=== PATIENT | female | born 1995 | race Hispanic/Latino ===

== ENCOUNTER 2019-12-03 11:21 | Emergency (ER) | payer OTHER ==
[~2019-12-03] VITALS: Ht 152.4 cm; Wt 45.4 kg
[2019-12-03] MEDS ORDERED: DOXYCYCLINE HY100 MG PO (13:35)
[2019-12-03] MEDS ORDERED: NORCO 5-325 TA1 EACH PO (13:35)
[2019-12-03] MEDS ORDERED: ONDANSETRON ODT4 MG PO (13:35)
[2019-12-03] MEDS ORDERED: FLAGYL500 MG PO (13:35)
== END 2019-12-03 14:30 | disposition home or self-care (01) ==
LOC: ED 11:21
DX: N73.9 Female pelvic inflammatory disease, unspecified (principal)
CPT/HCPCS: 76830; 76856; 80053; 81001; 83735; 84703; 85025; 87491; 87591; 96361; 96365; 96375; 99284-25; J0696; J1170; J1885; J2405; J2550; J7030

== ENCOUNTER 2019-12-04 08:03 | Emergency (ER) | payer OTHER ==
[~2019-12-04] VITALS: Ht 152.4 cm; Wt 45.4 kg
--- OUTSIDE RECORDS SUMMARY | ~2019-12-04 | XMS | Encounter Summary ---
Demographics + + + | Address | [address] | | | [place] [address] | + + + | Home Phone | | + + + | Preferred Language | Unknown | + + + | Marital Status | Single | + + + | Congregation Affiliation | Unknown | + + + | Race | Unknown | + + + | Ethnic Group | Unknown | + + + Author + + + | Author | [facility] | | | and [place] | + + + | Organization | [facility] | | | and [place] | + + + | Address | Unknown | + + + | Phone | Unavailable | + + + Support + + +---------+ + | Name | Relationship | Address | Phone | + + +---------+ + | Sharri Anne | ECON | Unknown | | + + +---------+ + Care Team Providers + +------+ + | Care Chief Librarian Circulation Department Name | Role | Phone | + +------+ + PCP | Unavailable | + +------+ + Encounter Details +--------+ + + + + | Date | Type | Department | Care Team | Description | +--------+ + + + + | 05/22/ | Emergency | [facility] | Matt Sierra | Generalized | | 2014 | | [facility] | [address] | abdominal pain; | | | | EMERG[facility] | ABENA BLANCHARD | Alcohol | | | | [address] | [place], [place] | intoxication, | | | | [place], [place] | [address] | uncomplicated; | | | | [address] | [phone] | Marijuana use; | | | | [phone] | | Polysubstance abuse; | | | | | | Intractable | | | | | | vomiting with | | | | | | nausea, vomiting of | | | | | | unspecified type | +--------+ + + + + Social History + +-------+ +--------+------+ | Tobacco Use | Types | Packs/Day | Years | Date | | | | | Used | | + +-------+ +--------+------+ | Never Smoker | | | | | + +-------+ +--------+------+ + + + | Sex Assigned at | Date Recorded | | | | + + + | Not on file | | + + + + + + + | Job Start Date | Occupation | Industry | + + + + | Not on file | Not on file | Not on file | + + + + + + + + | Travel History | Travel Start | Travel End | + + + + + + | No recent travel history available. | + + documented as of this encounter Plan of Treatment Not on filedocumented as of this encounter Procedures + +--------+ + + + | Procedure Name | Priori | Date/Time | Associated Diagnosis | Comments | | | ty | | | | + +--------+ + + + | GC/CHLAM APTIMA | Routin | 05/22/2015 | | Results for this | | | e | 12:15 PM | | procedure are in the | | | | PDT | | results section. | + +--------+ + + + | DANITA GENITAL | Timed | 05/22/2015 | | Results for this | | | | 12:15 PM | | procedure are in the | | | | PDT | | results section. | + +--------+ + + + | CHIN ABAD GENITAL | Timed | 05/22/2015 | | Results for this | | | | 12:15 PM | | procedure are in the | | | | PDT | | results section. | + +--------+ + + + | US PELVIS | Routin | 05/22/2015 | | Results for this | | TRANSABDOMINAL | e | 11:14 AM | | procedure are in the | | | | PDT | | results section. | + +--------+ + + + | URINALYSIS, REFLEX | Routin | 05/22/2015 | | Results for this | | MICROSCOPIC AND/OR | e | 11:09 AM | | procedure are in the | | CULTURE | | PDT | | results section. | + +--------+ + + + | MISC LAB REFERRAL | Routin | 05/22/2015 | | Results for this | | | e | 11:09 AM | | procedure are in the | | | | PDT | | results section. | + +--------+ + + + | URINALYSIS, | Routin | 05/22/2015 | | Results for this | | MICROSCOPIC ONLY | e | 11:09 AM | | procedure are in the | | | | PDT | | results section. | + +--------+ + + + | CT ABDOMEN PELVIS W | Routin | 05/22/2015 | | Results for this | | CONTRAST | e | 10:36 AM | | procedure are in the | | | | PDT | | results section. | + +--------+ + + + | EXTERNAL LAB: CBC | Routin | 05/22/2015 | | Results for this | | | e | 9:28 AM | | procedure are in the | | | | PDT | | results section. | + +--------+ + + + | C-REACTIVE PROTEIN | Routin | 05/22/2015 | | Results for this | | | e | 9:28 AM | | procedure are in the | | | | PDT | | results section. | + +--------+ + + + | , SERUM, | Routin | 05/22/2015 | | Results for this | | QUAL | e | 9:28 AM | | procedure are in the | | | | PDT | | results section. | + +--------+ + + + | OSMOLALITY, SERUM | Routin | 05/22/2015 | | Results for this | | | e | 9:28 AM | | procedure are in the | | | | PDT | | results section. | + +--------+ + + + | LIPASE | Routin | 05/22/2015 | | Results for this | | | e | 9:28 AM | | procedure are in the | | | | PDT | | results section. | + +--------+ + + + | ALCOHOL | Routin | 05/22/2015 | | Results for this | | | e | 9:28 AM | | procedure are in the | | | | PDT | | results section. | + +--------+ + + + | KETONES, BLOOD | Routin | 05/22/2015 | | Results for this | | | e | 9:28 AM | | procedure are in the | | | | PDT | | results section. | + +--------+ + + + | COMPREHENSIVE | Routin | 05/22/2015 | | Results for this | | METABOLIC PANEL | e | 9:28 AM | | procedure are in the | | | | PDT | | results section. | + +--------+ + + + documented in this encounter Results GC/Chlam Aptima (05/22/2015 12:15 PM PDT) + + + + + + | Component | Value | Ref Range | Performed | Pathologist | | | | | At | Signature | + + + + + + | Source | VAGINAL SPECIMENComment: | | EXTERNAL | | | | Testing performed at | | LAB | | | | [facility], [address], | | | | | | [place] [address] | | | | + + + + + + | Chlamydia | Not DetectedComment: | | EXTERNAL | | | Trachomatis | Testing performed at | | LAB | | | [facility] | [facility], [address] | | | | | | [place] | | | | | | [address] | | | | + + + + + + | Result | Not DetectedComment: | | EXTERNAL | | | | Testing performed at | | LAB | | | | [facility], [address] | | | | | | [place] | | | | | | [address] | | | | + + + + + + + + | Specimen | + + | | + + + +---------+ + + | Performing | Address | City/State/Zipcode | Phone Number | | Organization | | | | + +---------+ + + | EXTERNAL LAB | | | | + +---------+ + + Culture, Genital (05/22/2015 12:15 PM PDT) + + | Specimen | + + | | + + + + + | Narrative | Performed At | + + + | Specimen Description VAGINAL/RECTAL SWAB | EXTERNAL LAB | | CULTURE 3+ | | | NORMAL GENITAL CHERYL | | | Testing performed | | | at [facility], [address] [place] [address] | | + + + + +---------+ + + | Performing | Address | City/State/Zipcode | Phone Number | | Organization | | | | + +---------+ + + | EXTERNAL LAB | | | | + +---------+ + + Wet Mount, Genital (05/22/2015 12:15 PM PDT) + + | Specimen | + + | | + + + + + | Narrative | Performed At | + + + | Specimen Description VAGINAL/RECTAL SWAB | EXTERNAL LAB | | Bacteria, Wet Prep NO YEAST,TRICHOMONAS,OR | | | CLUE CELLS SEEN | | | NO WBC'S SEEN NO | | | SPERM SEEN | | | Testing performed at [facility], [address] [place] [address] | | + + + + +---------+ + + | Performing | Address | City/State/Zipcode | Phone Number | | Organization | | | | + +---------+ + + | EXTERNAL LAB | | | | + +---------+ + + US Pelvis Transabdominal (05/22/2015 11:14 AM PDT) + + | Specimen | + + | | + + + + + | Impressions | Performed At | + + + | 1. Unremarkable pelvic ultrasound. | | + + + + + + | Narrative | Performed At | + + + | NAYANA RODRÍGUEZ US PELVIS TRANSABDOMINAL HISTORY: Pelvic | | | pain. COMPARISON: None. TECHNIQUE: Transabdominal | | | examination of the pelvis was performed. FINDINGS: Uterus: | | | Uterus measures 6.3 x 2.5 x 2.6 cm, volume 21.4 mL. Endometrial | | | thickness 7 mm. Right ovary: Normal. Normal vascular flow. Right | | | ovary measures 2.8 x 2.7 x 1.8 cm, volume 7.1 mL. Left ovary: | | | Normal. Left ovary measures 2.5 x 2.9 x 1.7 cm, volume 6.5 mL. | | + + + + --------+ | Procedure Note | + --------+ | Arben Bhandari Conversion - 03/09/2019 11:11 AM PDT NAYANA ESTRFALLS MILLSUS PELVIS | | TRANSABDOMINAL HISTORY:Pelvic pain. COMPARISON:None. TECHNIQUE: Transabdominal | | examination of the pelvis was performed. FINDINGS: Uterus: Uterus measures 6.3 x 2.5 x | | 2.6 cm, volume 21.4 mL. Endometrial thickness 7 mm. Right ovary: Normal. Normal vascular | | flow. Right ovary measures 2.8 x 2.7 x 1.8 cm, volume 7.1 mL. Left ovary: Normal. Left | | ovary measures 2.5 x 2.9 x 1.7 cm, volume 6.5 mL. IMPRESSION: 1. Unremarkable pelvic | | ultrasound. | |None. | | | |TECHNIQUE: Transabdominal examination of the pelvis was performed. | | | |FINDINGS: | | | |Uterus: Uterus measures 6.3 x 2.5 x 2.6 cm, volume 21.4 mL. Endometrial thickness 7 mm. | | | |Right ovary: Normal. Normal vascular flow. Right ovary measures 2.8 x 2.7 x 1.8 cm, volume 7.1 mL. | | | |Left ovary: Normal. Left ovary measures 2.5 x 2.9 x 1.7 cm, volume 6.5 mL. | | | |IMPRESSION: | |1. Unremarkable pelvic ultrasound. | | | | | + --------+ Misc Lab Referral (05/22/2015 11:09 AM PDT) + + + + + + | Component | Value | Ref Range | Performed | Pathologist | | | | | At | Signature | + + + + + + | Amphetamine | NEGATIVEComment: The | | EXTERNAL | | | s | cutoff for a positive | | LAB | | | | AMP is 1000 | | | | | | ng/mL.Testing performed | | | | | | at [facility], [address] | | | | | | [place] | | | | | | [address] | | | | + + + + + + | Methampheta | NEGATIVEComment: The | | EXTERNAL | | | mine | cutoff for a positive | | LAB | | | Screen, UA, | mAMP is 1000 | | | | | POC | ng/mL.Testing performed | | | | | | at [facility], [address] | | | | | | [place] | | | | | | [address] | | | | + + + + + + | Barbiturate | NEGATIVEComment: The | | EXTERNAL | | | s Screen, | cutoff for a positive | | LAB | | | Urine | DREAD is 300 | | | | | | ng/mL.Testing performed | | | | | | at [facility], [address] | | | | | | [place] | | | | | | [address] | | | | + + + + + + | Benzodiazep | NEGATIVEComment: | | EXTERNAL | | | zena | Benzodiazepines | | LAB | | | Screen, | Cutoff: 300 | | | | | Urine | ng/mLTesting performed | | | | | | at [facility], [address] | | | | | | [place] | | | | | | [address] | | | | + + + + + + | Cocaine | NEGATIVEComment: The | | EXTERNAL | | | | cutoff for a positive | | LAB | | | | GALO is 300 ng/mL.Testing | | | | | | performed at [facility], [address] | | | | [address] [place] | | | | | | [place] [address] | | | | + + + + + + | Opiates | POSITIVE (A)Comment: | | EXTERNAL | | | | The cutoff for a | | LAB | | | | positive OPI is 300 | | | | | | ng/mL.Testing performed | | | | | | at [facility], [address] | | | | | | [place] | | | | | | [address] | | | | + + + + + + | Cannabinoid | POSITIVE (A)Comment: | | EXTERNAL | | | s Screen, | The cutoff for a | | LAB | | | Serum | positive THC is 50 | | | | | | ng/mL.The above are | | | | | | unconfirmed screening | | | | | | results. These results | | | | | | are to be used only for | | | | | | medical | | | | | | (i.e.,treatment) | | | | | | purposes. Unconfirmed | | | | | | screening results must | | | | | | not be used for | | | | | | non-medical purposes | | | | | | (e.g., employment | | | | | | testing, legal | | | | | | testing).Testing | | | | | | performed at [facility], [address] | | | | | [address] [place], | | | | | | [place] [address] | | | | + + + + + + + + | Specimen | + + | Urine specimen | | (specimen) | + + + +---------+ + + | Performing | Address | City/State/Zipcode | Phone Number | | Organization | | | | + +---------+ + + | EXTERNAL LAB | | | | + +---------+ + + Urinalysis, Reflex Microscopic and/or Culture (05/22/2015 11:09 AM PDT) + + + + + + | Component | Value | Ref Range | Performed | Pathologist | | | | | At | Signature | + + + + + + | Color | YELLOWComment: Testing | | EXTERNAL | | | | performed at [facility], [address] | | [address] | | | | [address] [place] | | | | | | [place] [address] | | | | + + + + + + | Clarity | CLEARComment: Testing | | EXTERNAL | | | | performed at [facility], [address] | | [address] | | | | [address] [place], | | | | | | [place] [address] | | | | + + + + + + | Specific | 1.010Comment: Testing | 1.001 - 1.035 | EXTERNAL | | | Valentines, | performed at [facility], [address] | | LAB | | | Urine | [address] [place], | | | | | | [place] [address] | | | | + + + + + + | Leukocyte | NEGATIVEComment: Testing | | EXTERNAL | | | Esterase, | performed at [facility], [address] | | LAB | | | Urine | [address] [place], | | | | | | [place] [address] | | | | + + + + + + | Nitrite, | NEGATIVEComment: Testing | | EXTERNAL | | | Urine | performed at [facility], [address] | | [address] | | | | [address] [place], | | | | | | [place] [address] | | | | + + + + + + | Urobilinoge | 0.2Comment: Testing | mg/dL | EXTERNAL | | | n, Urine | performed at [facility], [address] | | [address] | | | | [address] [place], | | | | | | [place] [address] | | | | + + + + + + | Protein, | NEGATIVEComment: Testing | mg/dL | EXTERNAL | | | Urine | performed at [facility], [address] | | [address] | | | | [address] [place], | | | | | | [place] [address] | | | | + + + + + + | pH, Urine | 6.5Comment: Testing | 4.6 - 8.0 | EXTERNAL | | | | performed at [facility], [address] | | [address] | | | | [address] [place], | | | | | | [place] [address] | | | | + + + + + + | Blood, | TRACE (A)Comment: | | EXTERNAL | | | Urine | Testing performed at | | LAB | | | | [facility], [address], | | | | | | [place] [address] | | | | + + + + + + | Ketones | 40 (A)Comment: Testing | mg/dL | EXTERNAL | | | | performed at [facility], [address] | | LAB | | | | [address] [place], | | | | | | [place] [address] | | | | + + + + + + | Bilirubin, | NEGATIVEComment: Testing | | EXTERNAL | | | Urine | performed at [facility], [address] | | LAB | | | | [address] [place], | | | | | | [place] [address] | | | | + + + + + + | Glucose, | NEGATIVEComment: Testing | mg/dL | EXTERNAL | | | Urine | performed at [facility], [address] | | LAB | | | | [address] [place], | | | | | | [place] [address] | | | | + + + + + + + + | Specimen | + + | | + + + +---------+ + + | Performing | Address | City/State/Zipcode | Phone Number | | Organization | | | | + +---------+ + + | EXTERNAL LAB | | | | + +---------+ + + Urinalysis, Microscopic Only (05/22/2015 11:09 AM PDT) + + + + + + | Component | Value | Ref Range | Performed | Pathologist | | | | | At | Signature | + + + + + + | WBC, UA | 1-5Comment: Testing | 0 - 5 /hpf | EXTERNAL | | | | performed at [facility], [address] | | LAB | | | | [address] [place], | | | | | | [place] [address] | | | | + + + + + + | RBC, UA | 1-5Comment: Testing | 0 - 5 /hpf | EXTERNAL | | | | performed at [facility], [address] | | LAB | | | | [address] [place], | | | | | | [place] [address] | | | | + + + + + + | Epithelial | >100Comment: Testing | /lpf | EXTERNAL | | | Cells | performed at [facility], [address] | | LAB | | | | [address] [place], | | | | | | [place] [address] | | | | + + + + + + | Bacteria, | TRACE (A)Comment: | | EXTERNAL | | | UA | Testing performed at | | LAB | | | | [facility], [address], | | | | | | [place] [address] | | | | + + + + + + + + | Specimen | + + | | + + + +---------+ + + | Performing | Address | City/State/Zipcode | Phone Number | | Organization | | | | + +---------+ + + | EXTERNAL LAB | | | | + +---------+ + + CT Abdomen Pelvis w Contrast (05/22/2015 10:36 AM PDT) + + | Specimen | + + | | + + + + + | Impressions | Performed At | + + + | 1. No acute abnormality of the abdomen or pelvis. Appendix, | | | gallbladder, pancreas, small bowel and colon are normal. Kidneys are | | | normal. No hydronephrosis or hydroureter. 2. Uterus and ovaries are | | | unremarkable by this modality. | | + + + + + + | Narrative | Performed At | + + + | NAYANA RODRÍGUEZ [address] ABDOMEN PELVIS W | | | CONTRAST 05/22/2015 10:36 AM INDICATION: Abdominal pain. | | | COMPARISON: None. TECHNIQUE: 5-mm axial images were acquired | | | through the abdomen and pelvis with IV contrast Oral Contrast: | | | Readi-Cat IV contrast: 100 mL Isovue-300 FINDINGS: Lung | | | Bases: No lung nodules or consolidation. Liver: Normal. No focal | | | masses. Normal hepatic vasculature. Bile ducts: Normal. No | | | intra-hepatic or extra-hepatic biliary ductal dilatation. No | | | radio-opaque stones. Gallbladder: Normal. No cholelithiasis or | | | evidence of cholecystitis. Pancreas: Normal. No focal lesions. No | | | ductal dilatation. Spleen: Normal. Adrenal Glands: Normal. | | | Kidneys/Ureters: Normal. No hydronephrosis or nephrolithiasis. | | | Stomach and Small Bowel: Normal. No wall thickening. No focal lesions. | | | No obstruction or perforation. Colon: Normal. No wall thickening. | | | No focal lesions. Appendix is normal. Uterus and ovaries are | | | unremarkable by this modality. Vasculature: No aortic aneurysm. | | | Bladder: Normal. Skeleton: Bones are normal. | | + + + + + | Procedure Note | + + | ThonyArben man Conversion - 03/09/2019 11:11 AM PDT NAYANA ANNE years | | FemaleCT ABDOMEN PELVIS W EEEOYVVK16/29/2015 10:36 AM INDICATION: Abdominal pain. | | COMPARISON: None. TECHNIQUE:5-mm axial images were acquired through the abdomen and | | pelvis with IV contrastOral Contrast: Readi-CatIV contrast: 100 mL Isovue-300 FINDINGS: | | Lung Bases: No lung nodules or consolidation. Liver: Normal. No focal masses. Normal | | hepatic vasculature. Bile ducts: Normal. No intra-hepatic or extra-hepatic biliary | | ductal dilatation. No radio-opaque stones. Gallbladder: Normal. No cholelithiasis or | | evidence of cholecystitis. Pancreas: Normal. No focal lesions. No ductal dilatation. | | Spleen: Normal. Adrenal Glands: Normal. Kidneys/Ureters: Normal. No hydronephrosis or | | nephrolithiasis. Stomach and Small Bowel: Normal. No wall thickening. No focal lesions. | | No obstruction or perforation. Colon: Normal. No wall thickening. No focal lesions. | | Appendix is normal. Uterus and ovaries are unremarkable by this modality. Vasculature: | | No aortic aneurysm. Bladder: Normal. Skeleton: Bones are normal. IMPRESSION: 1. No | | acute abnormality of the abdomen or pelvis. Appendix, gallbladder, pancreas, small bowel | | and colon are normal. Kidneys are normal. No hydronephrosis or hydroureter.2. Uterus | | and ovaries are unremarkable by this modality. | |Lung Bases: No lung nodules or consolidation. | | | |Liver: Normal. No focal masses. Normal hepatic vasculature. | | | |Bile ducts: Normal. No intra-hepatic or extra-hepatic biliary ductal dilatation. No radio-o paque stones. | | | |Gallbladder: Normal. No cholelithiasis or evidence of cholecystitis. | | | |Pancreas: Normal. No focal lesions. No ductal dilatation. | | | |Spleen: Normal. | | | |Adrenal Glands: Normal. | | | |Kidneys/Ureters: Normal. No hydronephrosis or nephrolithiasis. | | | |Stomach and Small Bowel: Normal. No wall thickening. No focal lesions. No obstruction or pe rforation. | | | |Colon: Normal. No wall thickening. No focal lesions. Appendix is normal. | | | |Uterus and ovaries are unremarkable by this modality. | | | |Vasculature: No aortic aneurysm. | | | |Bladder: Normal. | | | |Skeleton: Bones are normal. | | | |IMPRESSION: | |1. No acute abnormality of the abdomen or pelvis. Appendix, gallbladder, pancreas, small b owel and colon are normal. Kidneys are normal. No hydronephrosis or hydroureter. | |2. Uterus and ovaries are unremarkable by this modality. | | | | | + + Ketones, blood (05/22/2015 9:28 AM PDT) + + + + + + | Component | Value | Ref Range | Performed | Pathologist | | | | | At | Signature | + + + + + + | Ketones, | NEGATIVEComment: Testing | | EXTERNAL | | | Blood | performed at [facility], [address] | | LAB | | | | [address] [place], | | | | | | [place] [address] | | | | + + + + + + + + | Specimen | + + | Blood specimen | | (specimen) | + + + +---------+ + + | Performing | Address | City/State/Zipcode | Phone Number | | Organization | | | | + +---------+ + + | EXTERNAL LAB | | | | + +---------+ + + External Lab: CBC (05/22/2015 9:28 AM PDT) + + + + + + | Component | Value | Ref Range | Performed | Pathologist | | | | | At | Signature | + + + + + + | WBC | 13.90 (H)Comment: | 3.80 - 11.00 | EXTERNAL | | | | Testing performed at | K/uL | LAB | | | | [facility], [address], | | | | | | [place] [address] | | | | + + + + + + | Red Blood | 4.54Comment: Testing | 3.70 - 5.10 | EXTERNAL | | | Cells | performed at [facility], [address] | M/uL | LAB | | | Counted | [address] [place], | | | | | | [place] [address] | | | | + + + + + + | Hemoglobin | 14.2Comment: Testing | 11.3 - 15.5 | EXTERNAL | | | | performed at [facility], [address] | g/dL | LAB | | | | [address] [place], | | | | | | [place] [address] | | | | + + + + + + | Hematocrit, | 43.1Comment: Testing | 34.0 - 46.0 % | EXTERNAL | | | POC | performed at [facility], [address] | | LAB | | | | [address] [place], | | | | | | [place] [address] | | | | + + + + + + | MCV | 94.9Comment: Testing | 80.0 - 100.0 fl | EXTERNAL | | | | performed at [facility], [address] | | LAB | | | | [address] [place], | | | | | | [place] [address] | | | | + + + + + + | MCH | 31.3Comment: Testing | 27.0 - 34.0 pg | EXTERNAL | | | | performed at [facility], [address] | | LAB | | | | [address] [place], | | | | | | [place] [address] | | | | + + + + + + | MCHC | 32.9Comment: Testing | 32.0 - 35.5 | EXTERNAL | | | | performed at [facility], [address] | g/dL | LAB | | | | [address] [place], | | | | | | [place] [address] | | | | + + + + + + | RDW-CV | 41.1Comment: Testing | 37 - 53 fl | EXTERNAL | | | | performed at [facility], [address] | | LAB | | | | [address] [place], | | | | | | [place] [address] | | | | + + + + + + | Platelet | 289Comment: Testing | 150 - 400 K/uL | EXTERNAL | | | Count | performed at [facility], [address] | | LAB | | | Plasma | [address] [place], | | | | | | [place] [address] | | | | + + + + + + | MPV | 8.3Comment: Testing | fl | EXTERNAL | | | | performed at [facility], [address] | | LAB | | | | [address] [place], | | | | | | [place] [address] | | | | + + + + + + | Differentia | AUTOMATEDComment: | | EXTERNAL | | | l Type | Testing performed at | | LAB | | | | [facility], [address], | | | | | | [place] [address] | | | | + + + + + + | % Segmented | 89.16Comment: Testing | % | EXTERNAL | | | | performed at [facility], [address] | | LAB | | | Neutrophils | [address], | | | | | | [place] [address] | | | | + + + + + + | % | 7.35Comment: Testing | % | EXTERNAL | | | Lymphocytes | performed at [facility] [place], [address] | | LAB | | | | [address], | | | | | | [place] [address] | | | | + + + + + + | % Monocytes | 3.02Comment: Testing | % | EXTERNAL | | | | performed at [facility] [place], [address] | | LAB | | | | [address], | | | | | | [place] [address] | | | | + + + + + + | % | 0.20Comment: Testing | % | EXTERNAL | | | Eosinophils | performed at [facility] [place], [address] | | LAB | | | | [address], | | | | | | [place] [address] | | | | + + + + + + | % Basophils | 0.27Comment: Testing | % | EXTERNAL | | | | performed at [facility], [address] | | LAB | | | | [address], | | | | | | [place] [address] | | | | + + + + + + | Absolute | 12.39 (H)Comment: | 1.90 - 7.40 | EXTERNAL | | | Segmented | Testing performed at | K/uL | LAB | | | Neutrophils | [facility], [address], | | | | | | [place] [address] | | | | + + + + + + | Absolute | 1.02Comment: Testing | 1.00 - 3.90 | EXTERNAL | | | Lymphocytes | performed at [facility], [address] | K/uL | LAB | | | | [address] | | | | | | [place] [address] | | | | + + + + + + | Absolute | 0.42Comment: Testing | 0.00 - 0.80 | EXTERNAL | | | Monocytes | performed at [facility] [place], [address] | K/uL | LAB | | | | [address], | | | | | | [place] [address] | | | | + + + + + + | Absolute | 0.03Comment: Testing | 0.00 - 0.50 | EXTERNAL | | | Eosinophils | performed at [facility], [address] | K/uL | LAB | | | | [address], | | | | | | [place] [address] | | | | + + + + + + | Absolute | 0.04Comment: Testing | 0.00 - 0.10 | EXTERNAL | | | Basophils | performed at [facility], [address] | K/uL | LAB | | | | [address], | | | | | | [place] [address] | | | | + + + + + + | RBC | NORMAL PLT MORPHComment: | | EXTERNAL | | | Morphology | NORMAL RBC MORPHTesting | | LAB | | | | performed at [facility] [place], [address] | | | | | | [address], | | | | | | [place] [address] | | | | + + + + + + | Platelet | ADEQUATEComment: Testing | | EXTERNAL | | | Estimate | performed at [facility], [address] | | LAB | | | | [address], | | | | | | [place] [address] | | | | + + + + + + + + | Specimen | + + | Blood specimen | | (specimen) | + + + +---------+ + + | Performing | Address | City/State/Zipcode | Phone Number | | Organization | | | | + +---------+ + + | EXTERNAL LAB | | | | + +---------+ + + C-Reactive Protein (05/22/2015 9:28 AM PDT) + + + + + + | Component | Value | Ref Range | Performed | Pathologist | | | | | At | Signature | + + + + + + | CRP | <0.2Comment: Testing | mg/dL | EXTERNAL | | | | performed at [facility] [place], [address] | | LAB | | | | [address], | | | | | | [place] [address] | | | | + + + + + + + + | Specimen | + + | Blood specimen | | (specimen) | + + + +---------+ + + | Performing | Address | City/State/Zipcode | Phone Number | | Organization | | | | + +---------+ + + | EXTERNAL LAB | | | | + +---------+ + + , Serum, Qual (05/22/2015 9:28 AM PDT) + + + + + + | Component | Value | Ref Range | Performed | Pathologist | | | | | At | Signature | + + + + + + | HCG | NEGATIVEComment: Testing | | EXTERNAL | | | QUALITATIVE | performed at [facility], [address] | | LAB | | | | [address], | | | | | | [place] [address] | | | | + + + + + + + + | Specimen | + + | Blood specimen | | (specimen) | + + + +---------+ + + | Performing | Address | City/State/Zipcode | Phone Number | | Organization | | | | + +---------+ + + | EXTERNAL LAB | | | | + +---------+ + + Osmolality, Serum (05/22/2015 9:28 AM PDT) + + + + + + | Component | Value | Ref Range | Performed | Pathologist | | | | | At | Signature | + + + + + + | Osmolality, | 321 (H)Comment: Testing | 275 - 295 | EXTERNAL | | | Serum | performed at [facility];[address] | mOsm/kg | LAB | | | | [address];[place], [place] | | | | | | [address] | | | | + + + + + + + + | Specimen | + + | Blood specimen | | (specimen) | + + + +---------+ + + | Performing | Address | City/State/Zipcode | Phone Number | | Organization | | | | + +---------+ + + | EXTERNAL LAB | | | | + +---------+ + + Lipase (05/22/2015 9:28 AM PDT) + + + + + + | Component | Value | Ref Range | Performed | Pathologist | | | | | At | Signature | + + + + + + | Lipase | 108Comment: Testing | 73 - 393 U/L | EXTERNAL | | | | performed at [facility], [address] | | LAB | | | | [address], | | | | | | [place] [address] | | | | + + + + + + + + | Specimen | + + | Blood specimen | | (specimen) | + + + +---------+ + + | Performing | Address | City/State/Zipcode | Phone Number | | Organization | | | | + +---------+ + + | EXTERNAL LAB | | | | + +---------+ + + Ethanol (05/22/2015 9:28 AM PDT) + + + + + + | Component | Value | Ref Range | Performed | Pathologist | | | | | At | Signature | + + + + + + | Ethyl | 60 (H)Comment: Testing | mg/dL | EXTERNAL | | | Alcohol | performed at [facility], [address] | | LAB | | | | [address], | | | | | | [place] [address] | | | | + + + + + + + + | Specimen | + + | | + + + +---------+ + + | Performing | Address | City/State/Zipcode | Phone Number | | Organization | | | | + +---------+ + + | EXTERNAL LAB | | | | + +---------+ + + Comprehensive Metabolic Panel (05/22/2015 9:28 AM PDT) + + + + + + | Component | Value | Ref Range | Performed | Pathologist | | | | | At | Signature | + + + + + + | Na | 144 (H)Comment: Testing | 135 - 143 | EXTERNAL | | | | performed at [facility] [place] [place], [address] | mmol/L | LAB | | | | [address], | | | | | | [place] [address] | | | | + + + + + + | K | 3.4 (L)Comment: Testing | 3.5 - 4.9 | EXTERNAL | | | | performed at [facility], [address] | mmol/L | LAB | | | | [address], | | | | | | [place] [address] | | | | + + + + + + | Cl | 104Comment: Testing | 99 - 109 mmol/L | EXTERNAL | | | | performed at [facility], [address] | | LAB | | | | [address], | | | | | | [place] [address] | | | | + + + + + + | CO2 | 18 (L)Comment: Testing | 23 - 32 mmol/L | EXTERNAL | | | | performed at [facility], [address] | | LAB | | | | [address], | | | | | | [place] [address] | | | | + + + + + + | Anion Gap | 26 (H)Comment: Testing | 5 - 20 mmol/L | EXTERNAL | | | | performed at [facility], [address] | | LAB | | | | [address], | | | | | | [place] [address] | | | | + + + + + + | Glucose, | 144 (H)Comment: Testing | 65 - 99 mg/dL | EXTERNAL | | | Fasting | performed at [facility], [address] | | LAB | | | | [address], | | | | | | [place] [address] | | | | + + + + + + | BUN | 10Comment: Testing | 8 - 25 mg/dL | EXTERNAL | | | | performed at [facility], [address] | | LAB | | | | [address], | | | | | | [place] [address] | | | | + + + + + + | Creatinine | 0.72Comment: Testing | 0.50 - 1.00 | EXTERNAL | | | | performed at [facility] [place], [address] | mg/dL | LAB | | | | [address], | | | | | | [place] [address] | | | | + + + + + + | BUN/Creatin | 14Comment: Testing | | EXTERNAL | | | ine Ratio | performed at [facility], [address] | | LAB | | | | [address], | | | | | | [place] [address] | | | | + + + + + + | Calcium | 9.8Comment: Testing | 8.5 - 10.5 | EXTERNAL | | | | performed at [facility], [address] | mg/dL | LAB | | | | [address], | | | | | | [place] [address] | | | | + + + + + + | Protein, | 8.9 (H)Comment: Testing | 6.3 - 8.2 g/dL | EXTERNAL | | | Total | performed at [facility], [address] | | LAB | | | | [address], | | | | | | [place] [address] | | | | + + + + + + | Albumin | 4.9Comment: Testing | 3.6 - 5.0 g/dL | EXTERNAL | | | | performed at [facility], [address] | | LAB | | | | [address], | | | | | | [place] [address] | | | | + + + + + + | Globulin | 4.0Comment: Testing | 1.3 - 4.9 g/dL | EXTERNAL | | | | performed at [facility] [place] [place], [address] | | LAB | | | | [address], | | | | | | [place] [address] | | | | + + + + + + | A/G Ratio | 1.2Comment: Testing | 1.0 - 2.4 | EXTERNAL | | | | performed at [facility], [address] | | LAB | | | | [address], | | | | | | [place] [address] | | | | + + + + + + | Bilirubin | 0.4Comment: Testing | 0.1 - 1.5 mg/dL | EXTERNAL | | | Total | performed at [facility], [address] | | LAB | | | | [address], | | | | | | [place] [address] | | | | + + + + + + | ALP, | 101Comment: Testing | 35 - 115 U/L | EXTERNAL | | | External | performed at [facility], [address] | | LAB | | | | [address], | | | | | | [place] [address] | | | | + + + + + + | AST | 22Comment: Testing | 10 - 45 U/L | EXTERNAL | | | | performed at [facility], [address] | | LAB | | | | [address], | | | | | | [place] [address] | | | | + + + + + + | ALT | 24Comment: Testing | 10 - 65 U/L | EXTERNAL | | | | performed at [facility], [address] | | LAB | | | | [address], | | | | | | [place] [address] | | | | + + + + + + | Estimated | CALCULATION NOT | mL/min/1.73m2 | EXTERNAL | | | GFR | PERFORMED. RESULT NOT | | LAB | | | | VALID IF AGE LT 20 | | | | | | YEARS.Comment: Testing | | | | | | performed at [facility], [address] | | | | | | [address], | | | | | | [place] [address] | | | | + + + + + + + + | Specimen | + + | Blood specimen | | (specimen) | + + + +---------+ + + | Performing | Address | City/State/Zipcode | Phone Number | | Organization | | | | + +---------+ + + | EXTERNAL LAB | | | | + +---------+ + + documented in this encounter Visit Diagnoses + + | Diagnosis | + + | Generalized abdominal pain Abdominal pain, generalized | + + | Alcohol intoxication, uncomplicated (HCC) | + + | Marijuana use Cannabis abuse, unspecified | + + | Polysubstance abuse (HCC) Other, mixed, or unspecified nondependent drug abuse, | | unspecified | + + | Intractable vomiting with nausea, vomiting of unspecified type | + + documented in this encounter"
--- OUTSIDE RECORDS SUMMARY | ~2019-12-04 | XMS | Clinical Summary ---
Demographics + + + | Address | [address] | | | [place] [address] | + + + | Home Phone | | + + + | Preferred Language | Unknown | + + + | Marital Status | Single | + + + | Jew Affiliation | Unknown | + + + | Race | Unknown | + + + | Ethnic Group | Unknown | + + + Author + + + | Author | [facility] (Historical as of | | | 03-10-19) | + + + | Organization | [facility] (Historical as of | | | 03-10-19) | + + + | Address | Unknown | + + + | Phone | Unavailable | + + + Support + + +---------+ + | Name | Relationship | Address | Phone | + + +---------+ + | Sharri Rodríguez | ECON | Unknown | | + + +---------+ + Care Team Providers + +------+ + | Care Chain Carrier Name | Role | Phone | + +------+ + | Dr. Prosper | PP | Unavailable | + +------+ + Allergies No Known Allergies Current Medications No known medications Active Problems Not on file Social History + +-------+ +--------+------+ | Tobacco Use | Types | Packs/Day | Years | Date | | | | | Used | | + +-------+ +--------+------+ | Never Smoker | | | | | + +-------+ +--------+------+ + + +---------+ + | Alcohol Use | Drinks/We | oz/Week | Comments | | | ek | | | + + +---------+ + | No | | | | + + +---------+ + + + + | Sex Assigned at | Date Recorded | | | | + + + | Not on file | | + + + Last Filed Vital Signs + + + + | Vital Sign | Reading | Time Taken | + + + + | Blood Pressure | 115/61 | 05/22/2015 12:59 PM PDT | + + + + | Pulse | 87 | 05/22/2015 12:59 PM PDT | + + + + | Temperature | 36.8 C (98.3 F) | 05/22/2015 9:28 AM PDT | + + + + | Respiratory Rate | 16 | 05/22/2015 12:59 PM PDT | + + + + | Oxygen Saturation | 99% | 05/22/2015 12:59 PM PDT | + + + + | Inhaled Oxygen | - | - | | Concentration | | | + + + + | Weight | 48.1 kg (106 lb 0.7 | 05/22/2015 9:28 AM PDT | | | oz) | | + + + + | Height | 152.4 cm (5') | 05/22/2015 9:28 AM PDT | + + + + | Body Mass Index | 20.71 | 05/22/2015 9:28 AM PDT | + + + + Plan of Treatment Not on file Results Not on filefrom Last 3 Months Insurance + +--------+ +------+-------+ + | Payer | Benefi | Subscriber | Type | Phone | Address | | | t Plan | ID | | | | | | / | | | | | | | Group | | | | | + +--------+ +------+-------+ + | MEDICAID | [employer] | [id number] | | | [address] | | | [place] | | | | [place] | | | [place] | | | | [phone] | | | PHOTOLITHOGRAPHER | | | | | + +--------+ +------+-------+ + + +--------+ +--------+ + + | Guarantor Name | Accoun | Relation to | Date | Phone | Billing Address | | | t Type | Patient | of | | | | | | | | | | + +--------+ +--------+ + + | NAYANA RODRÍGUEZ | Person | Self [birth year] | Home: | [address] | | | al/Fam | | 1994 | [phone] | [place] | | | [place] | | | [phone] | [phone] | + +--------+ +--------+ + +"
--- OUTSIDE RECORDS SUMMARY | ~2019-12-04 | XMS | Clinical Summary ---
Demographics + + + | Address | [address] | | | [place] [address] | + + + | Home Phone | | + + + | Preferred Language | Unknown | + + + | Marital Status | Single | + + + | Presybeterian Affiliation | Unknown | + + + | Race | Unknown | + + + | Ethnic Group | Unknown | + + + Author + + + | Author | [facility] | | | and [place] | + + + | Organization | [facility] | | | and [place] | + + + | Address | Unknown | + + + | Phone | Unavailable | + + + Support + + +---------+ + | Name | Relationship | Address | Phone | + + +---------+ + | Sharri Miki | ECON | Unknown | | + + +---------+ + Care Team Providers + +------+ + | Care Branch Account Executive Name | Role | Phone | + +------+ + PCP | Unavailable | + +------+ + Allergies Not on File Medications Not on file Active Problems Not on file Social History [...] recent travel history available. | + + Last Filed Vital Signs Not on file Plan of Treatment + + + + + | Health Maintenance | Due Date | Last Done | Comments | + + + + + | Vaccine: | | | | | Dtap/Tdap/Td (1 - | 7 | | | | Tdap) | | | | + + + + + | Vaccine: HPV (1 - | | | | | Female 2-dose | 7 | | | | series) | | | | + + + + + | Cervical Cancer | | | | | Screening (Pap) | 7 | | | + + + + + | Vaccine: Influenza | | | | | (Season Ended) | 0 | | | + + + + + Results Not on filefrom Last 3 Months"
--- OUTSIDE RECORDS SUMMARY | ~2019-12-04 | XMS | Clinical Summary ---
Demographics + + + | Address | [address] | | | [place] [address] | + + + | Home Phone | | + + + | Preferred Language | Unknown | + + + | Marital Status | Single | + + + | Pentecostalism Affiliation | Unknown | + + + | Race | Unknown | + + + | Ethnic Group | Unknown | + + + Author + + + | Author | [facility] | | | and [place] | + + + | Organization | [facility] | | | and [place] | [...] Team Providers + +------+ + | Care Trail Construction Worker Name | Role | Phone | + [...]
--- OUTSIDE RECORDS SUMMARY | ~2019-12-04 | XMS | Clinical Summary ---
Demographics + + + | Address | [address] | | | [place] [address] | + + + | Home Phone | | + + + | Preferred Language | Unknown | + + + | Marital Status | Single | + + + | Spiritism Affiliation | Unknown | + + + | Race | Unknown | + + + | Ethnic Group | Unknown | + + + Author + + + | Author | [facility] (Historical as of | | | 03-10-19) | + + + | Organization | [facility] (Historical as of | | | 03-10-19) [...] Team Providers + +------+ + | Care Roll Edge Machine Operator Name | Role | Phone | + [...] +------+-------+ + | MEDICAID | [employer] | [id number] | | | [address] | | | N | | | | [place] | | | [place] | | | | [phone] | | | [employer]AY SHOP SUPERVISOR | | | | | + +--------+ [...] Self | [birth year] | Home: | [address] | | | al/Fam | | 1994 | [phone] | [place] | | | [place] | | | [phone] | [phone] | + +--------+ +--------+ + +"
--- OUTSIDE RECORDS SUMMARY | ~2019-12-04 | XMS | Encounter Summary ---
Demographics + + + | Address | [address] | | | [place] [address] | + + + | Home Phone | | + + + | Preferred Language | Unknown | + + + | Marital Status | Single | + + + | Yarsani Affiliation | Unknown | + + + | Race | Unknown | + + + | Ethnic Group | Unknown | + + + Author + + + | Author | [facility] | | | and [place] | + + + | Organization | [facility] | | | and [place] [...] Team Providers + +------+ + | Care Boom Pump Operator Name | Role | Phone | + +------+ + PCP | Unavailable | + +------+ + Encounter Details +--------+ + + + + | Date | Type | Department | Care Team | Description | +--------+ + + + + | 05/22/ | Emergency | [facility] | Matt Sierra | Generalized | | 2014 | | [facility] | [address] | abdominal pain; | | | | EMERGENCY ERICH | ABENA BLANCHARD | Alcohol | | | | [address] | [place], [place] | intoxication, | | | | [place], [place] | [address] | uncomplicated; | | | | [address] | [phone] | Marijuana use; | | | | [phone] | | Polysubstance abuse; | | | [...] | | LAB | | | | [facility], [address], | | | | | | [place] [address] | | | | + + + + + + | Chlamydia | Not DetectedComment: | | EXTERNAL | | | Trachomatis | Testing performed at | | LAB | | | [facility] | [facility], [address] | | | | | | [place] | | | | | | [address] | | | | + + + + + + | Result | Not DetectedComment: | | EXTERNAL | | | | Testing performed at | | LAB | | | | [facility], [address] | | | | | | [place] | | | | | | [address] | | | | + + + [...] Testing performed | | | at [facility], [address] [place] [address] | | + + + + +---------+ [...] SEEN | | | Testing performed at [facility], [address] [place] [address] | | + + + + +---------+ [...] Conversion - 03/09/2019 11:11 AM PDT NAYANA ESTRCANAJOHARIEUS PELVIS | | TRANSABDOMINAL HISTORY:Pelvic pain. COMPARISON:None. [...] | | | | | | at [facility], [address] | | | | | | [place] | | | | | | [address] | | | | + + + + + + | Methampheta | NEGATIVEComment: The | | EXTERNAL | | | mine | cutoff for a positive | | LAB | | | Screen, UA, | mAMP is 1000 | | | | | POC | ng/mL.Testing performed | | | | | | at [facility], [address] | | | | | | [place] | | | | | | [address] | | | | + + + + + + | Barbiturate | NEGATIVEComment: The | | EXTERNAL | | | s Screen, | cutoff for a positive | | LAB | | | Urine | DREAD is 300 | | | | | | ng/mL.Testing performed | | | | | | at [facility], [address] | | | | | | [place] | | | | | | [address] | | | | + + + + + + | Benzodiazep | NEGATIVEComment: | | EXTERNAL | | | zena | Benzodiazepines | | LAB | | | Screen, | Cutoff: 300 | | | | | Urine | ng/mLTesting performed | | | | | | at [facility], [address] | | | | | | [place] | | | | | | [address] | | | | + + + + + + | Cocaine | NEGATIVEComment: The | | EXTERNAL | | | | cutoff for a positive | | LAB | | | | GALO is 300 ng/mL.Testing | | | | | | performed at [facility], [address] | | | | [address] [place] | | | | | | [place] [address] | | | | + + + + + + | Opiates | POSITIVE (A)Comment: | | EXTERNAL | | | | The cutoff for a | | LAB | | | | positive OPI is 300 | | | | | | ng/mL.Testing performed | | | | | | at [facility], [address] | | | | | | [place] | | | | | | [address] | | | | + + + [...] | | | | | performed at [facility], [address] | | | | | | [address] [place], | | | | | | [place] [address] | | | | + + + [...] EXTERNAL | | | | performed at [facility], [address] | | LAB | | | | [address] [place] | | | | | | [place] [address] | | | | + + + + + + | Clarity | CLEARComment: Testing | | EXTERNAL | | | | performed at [facility], [address] | | LAB | | | | [address] [place], | | | | | | [place] [address] | | | | + + + + + + | Specific | 1.010Comment: Testing | 1.001 - 1.035 | EXTERNAL | | | [place], | performed at [facility], [address] | | LAB | | | Urine | [address] [place], | | | | | | [place] [address] | | | | + + + + + + | Leukocyte | NEGATIVEComment: Testing | | EXTERNAL | | | Esterase, | performed at [facility], [address] | | LAB | | | Urine | [address] [place], | | | | | | [place] [address] | | | | + + + + + + | Nitrite, | NEGATIVEComment: Testing | | EXTERNAL | | | Urine | performed at [facility], [address] | | LAB | | | | [address] [place], | | | | | | [place] [address] | | | | + + + + + + | Urobilinoge | 0.2Comment: Testing | mg/dL | EXTERNAL | | | n, Urine | performed at [facility], [address] | | LAB | | | | [address] [place], | | | | | | [place] [address] | | | | + + + + + + | Protein, | NEGATIVEComment: Testing | mg/dL | EXTERNAL | | | Urine | performed at [facility], [address] | | LAB | | | | [address] [place], | | | | | | [place] [address] | | | | + + + + + + | pH, Urine | 6.5Comment: Testing | 4.6 - 8.0 | EXTERNAL | | | | performed at [facility], [address] | | LAB | | | | [address] [place], | | | | | | [place] [address] | | | | + + + + + + | Blood, | TRACE (A)Comment: | | EXTERNAL | | | Urine | Testing performed at | | LAB | | | | [facility], [address], | | | | | | [place] [address] | | | | + + + + + + | Ketones | 40 (A)Comment: Testing | mg/dL | EXTERNAL | | | | performed at [facility], [address] | | LAB | | | | [address] [place], | | | | | | [place] [address] | | | | + + + + + + | Bilirubin, | NEGATIVEComment: Testing | | EXTERNAL | | | Urine | performed at [facility], [address] | | LAB | | | | [address] [place], | | | | | | [place] [address] | | | | + + + + + + | Glucose, | NEGATIVEComment: Testing | mg/dL | EXTERNAL | | | Urine | performed at [facility], [address] | | LAB | | | | [address] [place], | | | | | | [place] [address] | | | | + + + [...] EXTERNAL | | | | performed at [facility], [address] | | LAB | | | | [address] [place], | | | | | | [place] [address] | | | | + + + + + + | RBC, UA | 1-5Comment: Testing | 0 - 5 /hpf | EXTERNAL | | | | performed at [facility], [address] | | LAB | | | | [address] [place], | | | | | | [place] [address] | | | | + + + + + + | Epithelial | >100Comment: Testing | /lpf | EXTERNAL | | | Cells | performed at [facility], [address] | | LAB | | | | [address] [place], | | | | | | [place] [address] | | | | + + + + + + | Bacteria, | TRACE (A)Comment: | | EXTERNAL | | | UA | Testing performed at | | LAB | | | | [facility], [address], | | | | | | [place] [address] | | | | + + + [...] years | | FemaleCT ABDOMEN PELVIS W [id number]/29/2015 10:36 AM INDICATION: Abdominal pain. | | [...] | | | Blood | performed at [facility], [address] | | LAB | | | | [address] [place], | | | | | | [place] [address] | | | | + + + [...] K/uL | LAB | | | | [facility], [address], | | | | | | [place] [address] | | | | + + + + + + | Red Blood | 4.54Comment: Testing | 3.70 - 5.10 | EXTERNAL | | | Cells | performed at [facility], [address] | M/uL | LAB | | | Counted | [address] [place], | | | | | | [place] [address] | | | | + + + + + + | Hemoglobin | 14.2Comment: Testing | 11.3 - 15.5 | EXTERNAL | | | | performed at [facility], [address] | g/dL | LAB | | | | [address] [place], | | | | | | [place] [address] | | | | + + + + + + | Hematocrit, | 43.1Comment: Testing | 34.0 - 46.0 % | EXTERNAL | | | POC | performed at [facility], [address] | | LAB | | | | [address] [place], | | | | | | [place] [address] | | | | + + + + + + | MCV | 94.9Comment: Testing | 80.0 - 100.0 fl | EXTERNAL | | | | performed at [facility], [address] | | LAB | | | | [address] [place], | | | | | | [place] [address] | | | | + + + + + + | MCH | 31.3Comment: Testing | 27.0 - 34.0 pg | EXTERNAL | | | | performed at [facility], [address] | | LAB | | | | [address] [place], | | | | | | [place] [address] | | | | + + + + + + | MCHC | 32.9Comment: Testing | 32.0 - 35.5 | EXTERNAL | | | | performed at [facility], [address] | g/dL | LAB | | | | [address] [place], | | | | | | [place] [address] | | | | + + + + + + | RDW-CV | 41.1Comment: Testing | 37 - 53 fl | EXTERNAL | | | | performed at [facility], [address] | | LAB | | | | [address] [place], | | | | | | [place] [address] | | | | + + + + + + | Platelet | 289Comment: Testing | 150 - 400 K/uL | EXTERNAL | | | Count | performed at [facility], [address] | | LAB | | | Plasma | [address] [place], | | | | | | [place] [address] | | | | + + + + + + | MPV | 8.3Comment: Testing | fl | EXTERNAL | | | | performed at [facility], [address] | | LAB | | | | [address] [place], | | | | | | [place] [address] | | | | + + + + + + | Differentia | AUTOMATEDComment: | | EXTERNAL | | | l Type | Testing performed at | | LAB | | | | [facility], [address], | | | | | | [place] [address] | | | | + + + + + + | % Segmented | 89.16Comment: Testing | % | EXTERNAL | | | | performed at [facility], [address] | | LAB | | | Neutrophils | [address] [place], | | | | | | [place] [address] | | | | + + + + + + | % | 7.35Comment: Testing | % | EXTERNAL | | | Lymphocytes | performed at [facility], [address] | | LAB | | | | [address] [place], | | | | | | [place] [address] | | | | + + + + + + | % Monocytes | 3.02Comment: Testing | % | EXTERNAL | | | | performed at [facility], [address] | | LAB | | | | [address] [place], | | | | | | [place] [address] | | | | + + + + + + | % | 0.20Comment: Testing | % | EXTERNAL | | | Eosinophils | performed at [facility], [address] | | LAB | | | | [address] [place], | | | | | | [place] [address] | | | | + + + + + + | % Basophils | 0.27Comment: Testing | % | EXTERNAL | | | | performed at [facility], [address] | | LAB | | | | [address] [place], | | | | | | [place] [address] | | | | + + + + + + | Absolute | 12.39 (H)Comment: | 1.90 - 7.40 | EXTERNAL | | | Segmented | Testing performed at | K/uL | LAB | | | Neutrophils | [facility], [address], | | | | | | [place] [address] | | | | + + + + + + | Absolute | 1.02Comment: Testing | 1.00 - 3.90 | EXTERNAL | | | Lymphocytes | performed at [facility], [address] | K/uL | LAB | | | | [address] [place] | | | | | | [place] [address] | | | | + + + + + + | Absolute | 0.42Comment: Testing | 0.00 - 0.80 | EXTERNAL | | | Monocytes | performed at [facility], [address] | K/uL | LAB | | | | [address] [place], | | | | | | [place] [address] | | | | + + + + + + | Absolute | 0.03Comment: Testing | 0.00 - 0.50 | EXTERNAL | | | Eosinophils | performed at [facility], [address] | K/uL | LAB | | | | [address] [place], | | | | | | [place] [address] | | | | + + + + + + | Absolute | 0.04Comment: Testing | 0.00 - 0.10 | EXTERNAL | | | Basophils | performed at [facility], [address] | K/uL | LAB | | | | [address] [place], | | | | | | [place] [address] | | | | + + + + + + | RBC | NORMAL PLT MORPHComment: | | EXTERNAL | | | Morphology | NORMAL RBC MORPHTesting | | LAB | | | | performed at [facility], [address] | | | | | | [address] [place], | | | | | | [place] [address] | | | | + + + + + + | Platelet | ADEQUATEComment: Testing | | EXTERNAL | | | Estimate | performed at [facility], [address] | | LAB | | | | [address] [place], | | | | | | [place] [address] | | | | + + + [...] EXTERNAL | | | | performed at [facility], [address] | | LAB | | | | [address] [place], | | | | | | [place] [address] | | | | + + + [...] | | | QUALITATIVE | performed at [facility], [address] | | LAB | | | | [address] [place], | | | | | | [place] [address] | | | | + + + [...] | | | Serum | performed at [facility];888 | mOsm/kg | LAB | | | | [address], [place] | | | | | | [address] | | | | + + + [...] EXTERNAL | | | | performed at [facility], [address] | | LAB | | | | [address] [place], | | | | | | [place] [address] | | | | + + + [...] | | | Alcohol | performed at [facility], [address] | | LAB | | | | [address] [place], | | | | | | [place] [address] | | | | + + + [...] EXTERNAL | | | | performed at [facility], [address] | mmol/L | LAB | | | | [address] [place], | | | | | | [place] [address] | | | | + + + + + + | K | 3.4 (L)Comment: Testing | 3.5 - 4.9 | EXTERNAL | | | | performed at [facility], [address] | mmol/L | LAB | | | | [address] [place], | | | | | | [place] [address] | | | | + + + + + + | Cl | 104Comment: Testing | 99 - 109 mmol/L | EXTERNAL | | | | performed at [facility], [address] | | LAB | | | | [address] [place], | | | | | | [place] [address] | | | | + + + + + + | CO2 | 18 (L)Comment: Testing | 23 - 32 mmol/L | EXTERNAL | | | | performed at [facility], [address] | | LAB | | | | [address] [place], | | | | | | [place] [address] | | | | + + + + + + | Anion Gap | 26 (H)Comment: Testing | 5 - 20 mmol/L | EXTERNAL | | | | performed at [facility], [address] | | LAB | | | | [address] [place], | | | | | | [place] [address] | | | | + + + + + + | Glucose, | 144 (H)Comment: Testing | 65 - 99 mg/dL | EXTERNAL | | | Fasting | performed at [facility], [address] | | LAB | | | | [address] [place], | | | | | | [place] [address] | | | | + + + + + + | BUN | 10Comment: Testing | 8 - 25 mg/dL | EXTERNAL | | | | performed at [facility], [address] | | LAB | | | | [address] [place], | | | | | | [place] [address] | | | | + + + + + + | Creatinine | 0.72Comment: Testing | 0.50 - 1.00 | EXTERNAL | | | | performed at [facility], [address] | mg/dL | LAB | | | | [address] [place], | | | | | | [place] [address] | | | | + + + + + + | BUN/Creatin | 14Comment: Testing | | EXTERNAL | | | ine Ratio | performed at [facility], [address] | | LAB | | | | [address] [place], | | | | | | [place] [address] | | | | + + + + + + | Calcium | 9.8Comment: Testing | 8.5 - 10.5 | EXTERNAL | | | | performed at [facility], [address] | mg/dL | LAB | | | | [address] [place], | | | | | | [place] [address] | | | | + + + + + + | Protein, | 8.9 (H)Comment: Testing | 6.3 - 8.2 g/dL | EXTERNAL | | | Total | performed at [facility], [address] | | LAB | | | | [address] [place], | | | | | | [place] [address] | | | | + + + + + + | Albumin | 4.9Comment: Testing | 3.6 - 5.0 g/dL | EXTERNAL | | | | performed at [facility], [address] | | LAB | | | | [address] [place], | | | | | | [place] [address] | | | | + + + + + + | Globulin | 4.0Comment: Testing | 1.3 - 4.9 g/dL | EXTERNAL | | | | performed at [facility], [address] | | LAB | | | | [address] [place], | | | | | | [place] [address] | | | | + + + + + + | A/G Ratio | 1.2Comment: Testing | 1.0 - 2.4 | EXTERNAL | | | | performed at [facility], [address] | | LAB | | | | [address] [place], | | | | | | [place] [address] | | | | + + + + + + | Bilirubin | 0.4Comment: Testing | 0.1 - 1.5 mg/dL | EXTERNAL | | | Total | performed at [facility], [address] | | LAB | | | | [address] [place], | | | | | | [place] [address] | | | | + + + + + + | ALP, | 101Comment: Testing | 35 - 115 U/L | EXTERNAL | | | External | performed at [facility], [address] | | LAB | | | | [address] [place], | | | | | | [place] [address] | | | | + + + + + + | AST | 22Comment: Testing | 10 - 45 U/L | EXTERNAL | | | | performed at [facility], [address] | | LAB | | | | [address] [place], | | | | | | [place] [address] | | | | + + + + + + | ALT | 24Comment: Testing | 10 - 65 U/L | EXTERNAL | | | | performed at [facility], [address] | | LAB | | | | [place], | | | | | | [place] [address] | | | | + + + + + + | Estimated | CALCULATION NOT | mL/min/1.73m2 | EXTERNAL | | | GFR | PERFORMED. RESULT NOT | | LAB | | | | VALID IF AGE LT 20 | | | | | | YEARS.Comment: Testing | | | | | | performed at [facility], [address] | | | | | | [place], | | | | | | [place] [address] | | | | + + + [...]
[~2019-12-04 08:03] MED LIST: DOXYCYCLINE HY100 MG PO; FLAGYL500 MG PO; NORCO 5-325 TA1 EACH PO; ONDANSETRON ODT4 MG PO
--- OUTSIDE RECORDS SUMMARY | 2019-12-04 08:06 | XMS ---
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 E.DAaron VISIT COUNT (12 MO.) 2 [facility] TOTAL 2 NOTE: Visits indicate total known visits. ED/UCC VISIT TRACKING (12 MO.) 12/04/2019 08:04 [facility] TYPE: Emergency COMPLAINT: - STOMACH PAIN 12/03/2019 11:22 [facility] TYPE: Emergency COMPLAINT: - VOMITING INPATIENT VISIT TRACKING (12 MO.) No inpatient visits to display in this time frame [email or web address]
== END 2019-12-04 10:57 | disposition home or self-care (01) ==
LOC: ED 08:03
DX: N73.0 Acute parametritis and pelvic cellulitis (principal); Z79.899 Other long term (current) drug therapy
CPT/HCPCS: 85025; 96374; 96375; 99284-25; J1170; J1885; J2405; J7030